=== PATIENT | male | born 1945 | race American Indian/Alaskan Native ===

== ENCOUNTER 2021-12-29 06:39 | Day surgery (SDC) | payer OTHER ==
[2021-12-29] MEDS ORDERED: ASPIRIN EC 325 MG TAB PO NR (07:24)
[2021-12-29 07:53] LABS: Basophils % (Auto) 0.5 % (0.0-1.8); Eosinophils # (Auto) 0.1 K/mm3 (0.0-0.4); Eosinophils % (Auto) 1.9 % (0.0-4.3); Hematocrit 48.4 % (35.5-45.6); Hemoglobin 15.9 gm/dl (11.8-15.2); Lymphocytes # (Auto) 1.4 K/mm3 (1.2-5.4); Lymphocytes % (Auto) 21.1 % (13.4-35.0); Mean Corpuscular HGB Conc 33 % (32-34); Mean Corpuscular Volume 97 fl (84-94); Monocytes # (Auto) 0.9 K/mm3 (0.0-0.8); Monocytes % (Auto) 12.7 % (0.0-7.3); Platelet Count 203 K/mm3 (140-440); Red Blood Count 4.97 M/mm3 (3.65-5.03); Red Cell Distribution Width 13.7 % (13.2-15.2)
[2021-12-29 08:00] LABS: INR 0.97 (0.87-1.13)
[2021-12-29] MEDS ORDERED: SODIUM CHLORIDE 0.9% 500 ML 500 ML IV SCH (08:00)
[2021-12-29 08:01] LABS: Partial Thromboplastin Time 29.7 Sec. (24.2-36.6)
[2021-12-29 08:05] LABS: BUN/Creatinine Ratio 11; Blood Urea Nitrogen 9 mg/dL (9-20); Calcium 9.5 mg/dL (8.4-10.2); Hemolysis Index 59
[2021-12-29] MEDS: fentaNYL 100 MCG/2 ML INJ ONE ×2 (10:19→10:45)
[2021-12-29] MEDS: MIDAZOLAM 2 MG/2 ML INJ ONE ×2 (10:20→10:46)
[2021-12-29] MEDS: LIDOCAINE (1%) 10 MG/1 ML VIAL 20 ML MDV ONE ×2 (10:20→10:46)
[2021-12-29] MEDS: HEPARIN 10,000 UNITS/10 ML VIAL ONE ×2 (10:20→10:48)
[2021-12-29] MEDS: HEPARIN/NS 5000 UNIT/500ML 1,000 ML IR ONE ×3 (10:21→10:49)
[2021-12-29] MEDS: SODIUM CHLORIDE 0.9% 500 ML 500 ML ONE ×2 (10:21→10:45)
[2021-12-29] MEDS: VERAPAMIL 5 MG/2 ML INJ ONE ×2 (10:21→10:48)
[2021-12-29] MEDS: NITROGLYCERIN SYRINGE 3 ML ONE ×2 (10:21→10:48)
[2021-12-29] MEDS ORDERED: SODIUM CHLORIDE 0.9% 1000 ML 1,000 ML IV SCH (11:15)
--- NOTE | 2021-12-29 11:17 | Discharge Summary ---
Short Stay Discharge Plan Activity: advance as tolerated Weight Bearing Status: Full Weight Bearing Diet: low fat, low cholesterol, low salt Wound: keep clean and dry Special Instructions: smoking cessation, no heavy lifting (3 days) Follow up with: PRIMARY MD DUSTIN [Primary Care Provider] - 7 Days CHRISTEN MARCIAL MD [Staff Physician] - 7 Days
--- NOTE | 2021-12-29 11:29 | Cardiac Catherization Report ---
DATE OF SERVICE: 12/29/2021 CARDIAC CATHETERIZATION REPORT REASON FOR PROCEDURE: Dilated cardiomyopathy, systolic left ventricular failure. PROCEDURES: 1. Left heart catheterization. 2. Selective left and right coronary angiography. 3. Left ventricular angiography. 4. Sedation time start 10:46, end 10:58. DESCRIPTION OF PROCEDURE: The patient was prepped and draped in a sterile fashion after informed consent. The right radial cath site was prepped and draped after negative Mykel's test. The right radial artery was entered using Seldinger technique followed by placement of a 6-Italian hydrophilic sheath. Routine radial cocktail was administered via the sheath. Selective left and right coronary angiography was performed using #3.5 left Kyle and #4 right Kyle. A pigtail catheter was used for left ventricular angiography. Catheters were then removed, sheath removed and hemostasis achieved using a TR band. The patient was returned to the postprocedure unit in stable condition. There were no complications. FINDINGS: HEMODYNAMICS: Left ventricular end-diastolic pressure was 20, following coronary angiography. Ascending aortic pressure was 120/64. There was no significant pressure gradient on pullback across the aortic valve. CORONARY ANGIOGRAPHY: The left main coronary artery was angiographically normal. The left anterior descending artery contained mild diffuse irregularities in its mid segment, otherwise this vessel and its diagonal branches contained no significant disease. A medium-sized ramus intermedius artery contained diffuse mild to moderate atherosclerosis. The large, mid obtuse marginal branch of the circumflex artery contained diffuse moderate atherosclerosis in the distal segment, with an up to 50-60% stenosis noted in the mid segment of a terminal subbranch. The right coronary artery was dominant, and contained mild irregularities in its mid segment. Left ventricular systolic function was at the lower limits of normal with estimated ejection fraction of 45-50%. CONCLUSION: 1. Mild to moderate, nonobstructive atherosclerosis as noted above. 2. Left ventricular systolic function at the lower limits of normal, ejection fraction 45-50%. RECOMMENDATIONS: Risk factor modification and medical therapy. TID: [id number] RECEIPT: [id number] RODERICK/JOSE MARIA
[2021-12-29] MEDS ORDERED: traMADol 50 MG TAB PO PRN (11:30)
[2021-12-29 16:50] VITALS: BP 138/81
--- NOTE | 2021-12-30 17:45 | Electrocardiograph Report ---
[facility] Test Date: 2021-12-29 Test Time: 07:48:03 Pat Name: WANDA RESTREPO Department: Room: Gender: M [employer]: MADELIN : 1945 Requested By: MERI MURPHY Order Number: [id number] Reading MD: Meri Murphy Measurements Intervals [place] Rate: 66 P: 46 OR: 212 QRS: -69 QRSD: 193 T: 109 QT: 480 QTc: 503 Interpretive Statements Ventricular-paced complexes No previous ECG available for comparison Electronically Signed On 12-30-2021 17:45:15 EDT by Meri Murphy
== END 2021-12-29 06:40 | disposition home or self-care (01) ==
LOC: CATHLABREC 06:39
PROVIDERS: ATTEND Internal Medicine Cardiovascular Disease
DX: I42.0 Dilated cardiomyopathy (principal); I50.1 Left ventricular failure, unspecified; I25.10 Atherosclerotic heart disease of native coronary artery without angina pectoris; F17.210 Nicotine dependence, cigarettes, uncomplicated; I11.0 Hypertensive heart disease with heart failure; I50.9 Heart failure, unspecified; E78.00 Pure hypercholesterolemia, unspecified; Z79.899 Other long term (current) drug therapy; Z95.0 Presence of cardiac pacemaker; Z79.82 Long term (current) use of aspirin; Z98.890 Other specified postprocedural states
CPT/HCPCS: 36415; 80048; 85025; 85610; 85730; 93005; 93458; 99156; C1894; J1644; J1815; J2250; J3010; J7040; Q9967